=== PATIENT | female | born 1960 | race Caucasian/White ===

== ENCOUNTER 2017-05-12 08:03 | Inpatient (IN) | payer BC ==
--- NOTE | 2017-05-04 14:52 | MH ---
cc: Cristofer Harrington MD DATE OF ADMISSION: 05/12/2017 SCHEDULED ADMISSION: 05/12/2017 ADMITTING DIAGNOSIS: Severe osteoarthritis of the right hip; pain, right hip; gait disturbance. HISTORY OF PRESENT ILLNESS: The patient is a 57-year-old white female who has had a rather longstanding history of bilateral hip pain extending back for approximately 10 years. She had noted the initial onset of her discomfort, especially involving her left knee within the past 10 years and at that time, underwent orthopedic evaluation while she was living in the [place], [place] area. Her evaluation was focused on her left knee and x-ray studies were apparently unremarkable for any significant bony abnormality. The patient was treated with therapy intervention for a period of time and seemed to be doing reasonably well, but thereafter became progressively more symptomatic with pain that began to interfere with all ambulatory activities. During the past couple of years, she relocated to [place] and at that time, underwent further disposition with her primary care physician. She was referred for additional therapy intervention and at the suggestion of her therapist, did undergo orthopedic evaluation, at which time x-ray studies of her hip were completed with significant degenerative changes being noted. The patient was encouraged to conform to a weight reducing program and monitor her diabetes. She had followed through with strict modification of her diet and was able to proceed with significant weight loss and while being maintained on insulin treatment for her diabetes. She presented to the undersigned physician in November of this past year and at that time, described considerable difficulty conforming to all ambulatory activities, for which she was utilizing a walker as a full-time ambulatory aid. She has been alternating between ibuprofen and meloxicam for pain management. Her x-ray studies were reviewed, identifying significant degenerative changes with subtotal obliteration of the joint space and deformation of the femoral head associated with subchondral cyst formation. Findings and treatment options were reviewed with the patient at that time. The pros and cons of continuing with conservative management versus operative intervention that would involve total hip arthroplasty were outlined. Emphasis was made regarding the fact that the decision to proceed with surgery would be left entirely to the patient's discretion. At that time, the patient was undergoing dental treatment and thus postponed any further disposition. 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 She had also undergone a thorough vascular evaluation and was diagnosed as having chronic venostasis about her left lower extremity, for which she was prescribed nonoperative intervention. She continued to have pain involving both hips, but definitely being more pronounced on the right side and given the degree of incapacitation, had expressed her desire to proceed with a more definitive course of treatment. The more current x-ray studies revealed complete obliteration of her joint space with collapse of the femoral head and associated subchondral cyst formation. The involvement of total hip replacement was outlined, for which the patient indicated her full understanding and expressed her desire to proceed accordingly. In compliance with her wishes, she was scheduled for admission at this time in order that the above be accomplished. PAST MEDICAL HISTORY, HOSPITALIZATIONS AND SURGERIES: Have included tonsillectomy and dental extraction. The patient has also been hospitalized in the past for diabetes. Her current medical illnesses include diabetes, hypertension and elevated cholesterol. MEDICATIONS: She takes Lantus 35 units daily and Humulin N 10-20 units twice daily as indicated by glucose monitoring. She also conforms to a metabolic diet and has lost over 40 pounds within the past year. Additional medications include Accupril 5 mg daily, simvastatin 10 mg daily, and meloxicam 10 mg daily. She also takes a multivitamin tablet daily. ALLERGIES: THERE ARE NO INDICATED DRUG ALLERGIES. REVIEW OF SYSTEMS: She wears both glasses and contact lenses. Denies headache, seizure, or syncope. No sinus congestion or epistaxis. Auditory acuity intact. No tinnitus. No bleeding gums or dysphagia. Denies cough, shortness of breath, upper respiratory infection, pneumonia, or tuberculosis. No angina or heart disease. She is medically managed for hypertension. Her appetite is good. Bowel movements are regular. No hepatitis, gallbladder disease, ulcers or hemorrhoids. No urinary tract infection, no kidney stones. No history of fractures. No psychiatric illness. Her remaining review of systems is unremarkable and noncontributory. FAMILY HISTORY: The patient has been for more than 20 years. Her is 57 years of age. He has a history of heart disease. No children. FAMILY HISTORY: Positive for diabetes and heart disease. SOCIAL HISTORY: The patient completed be a BA college degree. 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 She does express an interest in returning to work once her hip symptoms have improved. She admits to a 1/2-1 pack per day use of tobacco for more than 20 years. Denies ethanol consumption. PHYSICAL EXAMINATION: VITAL SIGNS: Height 5 feet 6-1/2 inches, weight 167 pounds. GENERAL: An alert, oriented, and responsive 57-year-old white female who sits quietly upon the examination table with no obvious distress. HEAD, EARS, EYES, NOSE, AND THROAT: Pupils are equally round and reactive to light. Extraocular movements full. Sclerae are clear. External nares clear. External auditory canals clear. Dental intact. Mucous membranes pink and moist. Pharynx is clear. NECK: Supple, active range of motion with no appreciable pain. Carotid pulse palpable bilaterally. Trachea midline. Thyroid without thyroid enlargement. LUNGS: Clear to auscultation and percussion. BACK: No CVA tenderness. No discomfort about the dorsolumbar spine. HEART: Regular rate and rhythm. No murmur or gallop. ABDOMEN: Soft, nontender, bowel sounds present. PELVIC: Per primary care physician. EXTREMITIES: Right hip, there is no localizing tenderness about the hip. There is limited and restricted mobility of the hip joint in all ranges assessed with pain at the extremes of motion. Straight leg raising is limited to 60 degrees. Umang sign is markedly positive. Distal sensory grossly intact. Pronounced antalgic gait. NEUROLOGIC: Cranial nerves 2 through 12 grossly intact. IMPRESSION: Severe osteoarthritis of the right hip; pain, right hip; gait disturbance. PLAN: Right total hip arthroplasty. The nature of the planned surgical procedure, the potential complications and risks associated, the expectations of surgery and the consent form were thoroughly reviewed with the patient prior to her admission to the hospital. Elvira has indicated her full understanding regarding all of the above and given consent to proceed with treatment as outlined. Medical evaluation and clearance for surgery will be completed by her primary care physician, Dr. Umang Lyon. MD NORA Davila/SB , 04:52 PM , 05:29 PM
[~2017-05-12] VITALS: Ht 167.6 cm; Wt 75.0 kg
[~2017-05-12 08:03] MED LIST: ACCU5TAB PO; INSU100V3 SQ; LANTUS2P SQ; SIMV10TA PO
[2017-05-12] MEDS ORDERED: METOPROLOL TARTRATE 25 MG TAB PO PRN (08:30)
[2017-05-12] MEDS ORDERED: SODIUM CHLORID 0.9% 500 ML IV PRN (08:30)
[2017-05-12] MEDS ORDERED: CHLORHEXIDINE GLUCONATE 2 % 1 PACK (2 CLOTHS) TOPICAL PRN (08:30)
[2017-05-12] MEDS ORDERED: POVIDONE IODINE 5% (ANTISEPSIS KIT) 4 APPLICATIONS EACH NARE PRN (08:30)
[2017-05-12] MEDS ORDERED: POVIDONE IODINE 7.5% SCRUB 118 ML BOTTLE TOPICAL SCH (08:30)
[2017-05-12] MEDS ORDERED: INSULIN HUMAN REGULAR 1,000 UNITS/10 ML VIAL SQ PRN (08:30)
[2017-05-12] MEDS ORDERED: LACTATED RINGER'S 1000 ML IV PRN (08:30)
[2017-05-12] MEDS ORDERED: CEFAZOLIN INJ 2,000 MG in SODIUM CHLORIDE 0.9% INJ 100 ML IV SCH (09:00)
[2017-05-12] MEDS ORDERED: TRANEXAMIC ACID 1 GM PRIOR TO PROCEDURE IV SCH ×2 (09:00)
[2017-05-12] MEDS ORDERED: ceFAZolin INJ 1,000 MG VIAL ONE (09:31)
[2017-05-12] MEDS ORDERED: PROPOFOL 500 MG/50 ML INJ 50 ML ONE (09:47)
[2017-05-12] MEDS ORDERED: BUPIVACAINE PF 0.75% DEX-WATER INJ 2 ML AMP ONE (09:48)
[2017-05-12] MEDS ORDERED: ACETAMINOPHEN 1000 MG/100 ML 100 ML IV ONE (10:13)
[2017-05-12] MEDS ORDERED: FAMOTIDINE 20 MG/2 ML VIAL ONE (10:15)
[2017-05-12] MEDS ORDERED: PHENYLEPH/NS 1000 MCG/10 ML SYR IV ONE (12:00)
[2017-05-12] MEDS ORDERED: TRANEXAMIC ACID 1 GM POST-OP IV SCH ×2 (12:00)
[2017-05-12] MEDS ORDERED: LACTATED RINGER'S 1000 ML INJ 1,000 ML IV ONE (12:00)
[2017-05-12] MEDS ORDERED: PROPOFOL 200 MG/20 ML AMP IV ONE (12:00)
[2017-05-12] MEDS ORDERED: PHENYLEPHRINE HCL 10 MG/ML VIAL IV ONE (12:00)
[2017-05-12] MEDS ORDERED: ONDANSETRON HCL 4 MG/2 ML VIAL IV ONE (12:00)
[2017-05-12] MEDS ORDERED: DO NOT ADM ANY ANTICOAGULANT DRUGS PRN (12:35)
[2017-05-12] MEDS ORDERED: *morphine SULFATE 8 MG/ML PERIprocedure ONLY ONE ×2 (12:41→12:46)
[2017-05-12] MEDS ORDERED: MIDAZOLAM HCL 2 MG/2 ML VIAL ONE (12:41)
[2017-05-12] MEDS ORDERED: DEXT 5%-NACL 0.45% 1000 ML INJ 1,000 ML IV SCH (12:51)
--- NOTE | 2017-05-12 12:57 | HHI.FF ---
Face to Face Verification Diagnosis: (1) Degenerative joint disease of right hip Physical Therapy Hip: Total hip, Protocol: Right, Abduction pillow while in bed Right LE Weight Bearing: WB as tolerated Right LE Range of Motion: Active ROM Nursing Dressing Changes: Daily dressing change I have seen patient Elvira Machuca on 05/12/17. My clinical findings support the need for the requested home health care services because: Limited ability to care for self High risk of falls I certify that my clinical findings support that this patient is homebound because: Post-op weakness Unsteady gait/balance Unsafe to leave home unassisted Cristofer Harrington MD May 12, 2017 12:57
[2017-05-12] MEDS ORDERED: MEPERIDINE HCL 25 MG/ML VIAL ONE (12:59)
[2017-05-12] MEDS ORDERED: DOCUSATE SODIUM 100 MG CAP PO PRN (13:00)
[2017-05-12] MEDS ORDERED: ACETAMINOPHEN 325 MG TAB PO PRN (13:00)
[2017-05-12] MEDS ORDERED: Post-op Orders (for Pharmacy) XX ONE (13:00)
[2017-05-12] MEDS ORDERED: NALOXONE HCL 0.4 MG/ML AMP IV PUSH PRN (13:00)
[2017-05-12] MEDS ORDERED: ZOLPIDEM TARTRATE 5 MG TAB PO PRN (13:00)
[2017-05-12] MEDS ORDERED: MISCELLANEOUS PHARMACY INFORMATION XX ONE (13:00)
[2017-05-12] MEDS ORDERED: ONDANSETRON HCL 4 MG/2 ML VIAL IVP PRN (13:00)
[2017-05-12] MEDS ORDERED: TRANEXAMIC ACID INJ 1,000 MG in SODIUM CHLORIDE 0.9% INJ 100 ML IV SCH (13:00)
[2017-05-12] MEDS ORDERED: ACETAMINOPHEN/HYDROcodone 325 MG/5 MG TAB PO PRN (13:00)
--- NOTE | 2017-05-12 13:23 | MP ---
cc: Cristofer Harrington MD DATE OF OPERATION: 05/12/2017 PREOPERATIVE DIAGNOSIS: Severe osteoarthritis of the right hip, pain right hip and gait disturbance. POSTOPERATIVE DIAGNOSIS: Severe osteoarthritis of the right hip, pain right hip and gait disturbance. PROCEDURE PERFORMED: Right total hip arthroplasty. SURGEON: MD Juany ANESTHESIA: Spinal. INDICATIONS: A 57-year-old white female with a lengthy history of bilateral hip pain extending back for at least 10 years. She had noted the initial onset of her discomfort initially involving the left knee and at that time underwent orthopedic evaluation while living in the [facility]. Her initial evaluation was focused on the knee and x-ray studies were apparently unremarkable for any significant bony abnormality. The patient was treated with therapy intervention, seemed to be doing reasonably well, but becoming progressively more symptomatic with pain that began to interfere with all ambulatory activities. During the past couple of years, she relocated to [place] and at that time underwent further disposition with her primary care physician. She was referred for additional therapy/treatment and at the suggestion of her therapist did undergo orthopedic evaluation at which time x-ray studies of her hips were completed with significant degenerative changes being noted. The patient was encouraged to conform to a weight reducing program and monitor her diabetes. She followed through with strict modification of diet and was to proceed with a significant weight loss while being maintained on insulin treatment for her diabetes. She presented to the undersigned physician in November of this past year and at that time described considerable difficulty, conforming to all ambulatory activities for which she was utilizing a walker as a full-time ambulatory aid. She had been alternating between ibuprofen and meloxicam for pain management. Her x-ray studies demonstrated significant degenerative changes with subtotal obliteration of the joint space and deformation of the femoral head associated with subchondral cyst formation. Findings and treatment options were reviewed. The pros and cons of continuing with conservative management versus operative intervention that would involve total hip arthroplasty were outlined. Emphasis was made regarding the fact that the decision to proceed with surgery would be left entirely to the patient's discretion. At that time, the patient was undergoing dental treatment and postponed any further orthopedic disposition. She returned to the office more recently indicating that she was having ongoing difficulties as related to all weightbearing activities and continuing to require use of a walker as an ambulatory aid. She has also undergone a thorough vascular evaluation and was diagnosed as having chronic venous stasis about her left lower extremity for which she was prescribed nonoperative intervention. She continued with pain of both hips, but definitely more pronounced on the right side, her more. Her more current x-ray studies revealed complete obliteration of her joint space with collapse of the femoral head and associated subchondral cyst formation. The involvement of total hip replacement was again outlined at which time the patient indicated her full understanding and expressed her desire to proceed accordingly. In compliance with her request, she was scheduled for admission at this time in order that the above be accomplished. FORMAT: Following the induction of satisfactory spinal anesthesia as completed per the Department of Anesthesia, the patient was positioned upon the operating table in a left lateral decubitus fashion. The right hip and lower extremity proper were isolated with a U-drape, thereafter being prepped with Betadine solution and draped into a sterile field in the routine manner. Prior to initiation of the actual procedure, the standard timeout protocol was completed. All parameters were appropriately addressed and confirmed by operating room personnel. A standard posterolateral approach to the hip was initiated through a sharp skin incision and developed through underlying subcutaneous tissue with hemostasis maintained by electrocautery. By deepening dissection, the fascia overlying the gluteus musculature was exposed and thereafter sharply incised to the limits of the incision. The underlying gluteus fibers were then bluntly divided and by progressive dissection the short external rotator structures were identified. The piriformis tendon was utilized as an anatomical landmark and division of these structures was completed in a superior to inferior orientation and reflected medially, exposing the posterior capsule. The sciatic nerve was protected. An L-shaped capsulotomy was accomplished through which a posterior dislocation of the femoral head was completed. Examination revealed severe degenerative changes with complete erosion of articular cartilage and an obvious osteochondral defect about the femoral head region. The femoral template was positioned for alignment orientation. The neck was scored and thereafter divided with power saw, the amputated segment being passed to the back table as surgical specimen. Attention was initially directed to the proximal femur. Cancellous bone was harvested. The tapered reamer was inserted for alignment orientation. Sequential rasping and broaching was accomplished from 7 through 8 mm, the calcar bijan being utilized at the 8 mm stage. The 8 mm stem was determined to be a favorable fit. The trial component being removed, attention was redirected to the acetabulum. The labrum and reactive soft tissue were sharply excised. Progressive reaming was accomplished from 46-54 mm. The 54 trial shell was positioned and determined to be satisfactory. All trial components being removed, the wound was copiously irrigated with pulsating antibiotic solution, hemostasis maintained by electrocautery. Thereafter a 54 mm RingLoc acetabular shell was firmly seated in approximately 45 degrees inclination to the horizontal and slight anteversion. Two 6.5 mm screws of 25 and 20 mm length respectively were inserted superiorly to augment fixation. The permanent high wall acetabular liner was affixed to the acetabular shell. Attention was redirected to the proximal femur. The 8 mm trial femoral broach was repositioned and a trial reduction followed utilizing a 36 mm modular head with -6 mm neck length adaptor. The hip readily reduced and was carried through a passive range of motion, stability demonstrated at 90 degrees flexion and 45 degrees internal rotation. An open dislocation was completed, trial femoral components being removed, the canal was thoroughly irrigated and dried and thereafter, the permanent 8 mm Echo Bi-Metric standard femoral stem was firmly seated to which, a 36 mm ceramic head with -6 mm neck length adapter attached. Open reduction completed and repeat range of motion again noted stability as previously described. Final irrigation was accomplished, hemostasis maintained by electrocautery. The posterior capsule was repaired with 0 Vicryl suture. Piriformis tendon and short external rotator structures were reapproximated in a similar manner. Hemovac drain tubes were inserted through superior stab wounds. The fascia of the gluteus musculature was reapproximated with a running 0 Vicryl suture. The remaining portion of the wound was closed in layers in the routine manner, skin margins being reapproximated with a running subcuticular 3-0 Vicryl suture over which Steri-Strips were applied. Xeroform gauze and a bulky dry sterile dressing were placed. The patient was repositioned into a supine orientation where an abduction splint was attached. Anesthesia was discontinued and she was thereafter transferred to a hospital bed and returned to the recovery room in satisfactory condition, having tolerated her operative procedure well Estimated blood loss was approximately 300 mL as determined per Anesthesia. All implants were of the Biomet nut culler. MD NORA Davila/SB , 12:48 PM , 01:22 PM
[2017-05-12] MEDS: MORPHINE SULFATE 30 MG/30 ML PCA IV SCH (13:30)
--- NOTE | 2017-05-12 14:15 | RADRPT ---
EXAM DATE/TIME: 05/12/2017 13:29 [facility] COMPARISON: No previous studies available for comparison. INDICATIONS : Post-op right hip. MEDICAL HISTORY : None. SURGICAL HISTORY : None. ENCOUNTER: Initial ACUITY: 1 day PAIN SCORE: 0/10 LOCATION: Right Hip. FINDINGS: Single frontal view of the right hip status post total hip arthroplasty demonstrates a noncemented pr osthesis and 2 superior screws in the acetabular component. [address] place. Some sc attered soft tissue gas. No radiopaque foreign bodies. CONCLUSION: Expected postoperative changes status post total hip arthroplasty. Hong Delgado MD on May 12, 2017 at 14:12 Board Certified Radiologist. This report was verified electronically.
[2017-05-12 15:20] VITALS: BP_SYST 136; BP_SYST 86; BP_DIAS 43; BP_DIAS 44; BP_DIAS 63; PULSE 78; RESP 18; TEMP 97.8; O2SAT 100
[2017-05-12] MEDS ORDERED: GLUCAGON 1 MG/ML VIAL OTHER PRN ×3 (16:00→16:30)
[2017-05-12] MEDS ORDERED: DEXTROSE 50% IN WATER 50 ML VIAL(D50) IV PUSH PRN ×2 (16:00→16:30)
--- NOTE | 2017-05-12 16:10 | PD.CONS ---
HPI Service [facility] Requested By Primary Care Physician Umang Lyon III Diagnoses: (1) right hip severe osteoarthritis (2) on PENELOPE inhibitor for renal protection (3) Diabetes mellitus type II, controlled History of Present Illness Patient is a very pleasant 57-year-old female with known history of diabetes type 2 insulin-requiring last hemoglobin A1c was 5.2 per patient well controlled , with good hypoglycemic awareness on oral hypoglycemic, takes quinapril 5 mg by mouth daily for renal protection,. Patient was admitted here under orthopedic services and underwent right total hip arthroplasty. Patient has been having right hip pain actually bilateral but right worse than the left states history of a vascular necrosis of both hips. Increasing difficulty walking for the past 4 years now worsening over the last year and had to use a cane and walker for ambulation. Admitted today and [facility] patient states she is on Lantus 35 units subcutaneous in the morning on a sliding scale Humulin and a averages around 10-20 units twice a day. Before breakfast and before dinner. Patient states that her blood sugars started around 120s to 160s with good hypoglycemic awareness. Patient smokes half pack per day still. Denies any history of COPD, shortness of breath. Review of Systems Constitutional: DENIES: Diaphoretic episodes, Fatigue, Fever, Weight gain, Weight loss, Chills, Dizziness, Change in appetite, Night Sweats Endocrine: DENIES: Abnorml menstrual pattern, Heat/cold intolerance, Polydipsia , Polyuria, Polyphagia Eyes: DENIES: Blurred vision, Diplopia, Eye inflammation, Eye pain, Vision loss , Photosensitivity, Double Vision Ears, nose, mouth, throat: DENIES: Tinnitus, Hearing loss, Vertigo, Nasal discharge, Oral lesions, Throat pain, Hoarseness, Ear Pain, Running Nose, Epistaxis, Sinus Pain, Toothache, Odynophagia Respiratory: DENIES: Apneas, Cough, Snoring, Wheezing, Hemoptysis, Sputum production, Shortness of breath Cardiovascular: DENIES: Chest pain, Palpitations, Syncope, Dyspnea on Exertion , PND, Lower Extremity Edema, Orthopnea, Claudication Gastrointestinal: DENIES: Abdominal pain, Black stools, Bloody stools, Constipation, Diarrhea, Nausea, Vomiting, Difficulty Swallowing, Anorexia Genitourinary: DENIES: Abnormal vaginal bleeding, Dysmenorrhea, Dyspareunia, Sexual dysfunction, Urinary frequency, Urinary incontinence, Urgency, Hematuria , Dysuria, Nocturia, Vaginal discharge Musculoskeletal: COMPLAINS OF: Joint pain (bilateral hip pain) Integumentary: DENIES: Abnormal pigmentation, Pruritus, Rash, Nail changes, Breast masses, Breast skin changes, Nipple discharge Hematologic/lymphatic: DENIES: Bruising, Lymphadenopathy Immunologic/allergic: DENIES: Eczema, Urticaria Neurologic: COMPLAINS OF: Abnormal gait Psychiatric: DENIES: Anxiety, Confusion, Mood changes, Depression, Hallucinations, Agitation, Suicidal Ideation, Homicidal Ideation, Delusions Past Family Social History Allergies: Coded Allergies: No Known Allergies (Unverified , 05/12/17) Past Medical History Diabetes type 2 insulin-requiring On PENELOPE inhibitor for renal protection Hyperlipidemia on simvastatin Past Surgical History No major surgery Reported Medications As outpatient quinapril 5 mg by mouth daily for renal protection Lantus 35 units subcutaneous every morning Humulin and 10-20 units twice a day Simvastatin Active Ordered Medications See EMR Family History Noncontributory Social History Smokes half pack per day Very rarely drinks alcohol Denies any history of substance abuse Physical Exam Vital Signs Vital Signs Date Time Temp Pulse Resp B/P (MAP) Pulse Ox O2 Delivery O2 Flow Rate FiO2 05/12/17 14:12 73 16 121/58 (79) 100 Nasal Cannula 2 05/12/17 13:30 16 05/12/17 13:15 71 16 140/66 (90) 100 Nasal Cannula 2 05/12/17 13:00 73 16 136/62 (86) 99 Nasal Cannula 2 05/12/17 12:45 77 16 128/54 (78) 99 Nasal Cannula 2 05/12/17 12:37 97.8 75 16 113/57 (75) 100 Nasal Cannula 2 05/12/17 09:17 98.6 75 20 149/67 (94) 100 Physical Exam GENERAL: This is a well-nourished, well-developed patient, in no apparent distress. SKIN: No rashes, ecchymoses or lesions. Cool and dry. HEAD: Atraumatic. Normocephalic. EYES: Pupils equal round and reactive. Extraocular motions intact. No scleral icterus. ENT: Nose without bleeding, Throat without erythema, tonsillar hypertrophy or exudate. . Airway patent. NECK: Trachea midline. No JVD or lymphadenopathy. Supple, nontender, no meningeal signs. CARDIOVASCULAR: Regular rate and rhythm without murmurs, gallops, or rubs. RESPIRATORY: Clear to auscultation. Breath sounds equal bilaterally. No wheezes , rales, or rhonchi. GASTROINTESTINAL: Abdomen soft, non-tender, nondistended. No hepato-splenomegaly , or palpable masses. No guarding. MUSCULOSKELETAL: Extremities without clubbing, cyanosis, or edema. No joint tenderness, effusion, or edema noted. No calf tenderness. Negative Homans sign bilaterally. Right hip postop LINDA drain in place NEUROLOGICAL: Awake and alert. Cranial nerves II through XII intact. Motor lower extremity limited by pain is all extremities spontaneously Five out of 5 muscle strength in all muscle groups. Normal speech. Imaging Last Impressions Hip X-Ray 05/12/17 1251 Signed Impressions: Service Date/Time: Friday, May 12, 2017 13:29 - CONCLUSION: Expected postoperative changes status post total hip arthroplasty. Hong Delgado MD Assessment and Plan Assessment and Plan 57-year-old female Status post right total hip arthroplasty for severe osteoarthritis of the right hip05/12 PT following, orthopedic service is following When necessary pain meds per primary service. History of diabetes type 2 insulin-requiring discussed with patient we'll start her Lantus at half home dose while here and monitor - 15 units Lantus q am- d/w pharmacy- medically necessary- patient refused levemer equivalent We'll check fingersticks with sliding scale coverage low dose patient states good hypoglycemic awareness- agrees with Novolin r low dose sliding scale Quinapril 5 mg po daily for renal protection- hold for now- BP now 97/60 - consider restarting in am. History of hyperlipidemia continue on simvastatin Smoker. Patient counseled extensively. Agrees with nicotinic patch Incentive spirometry hourly Xarelto for DVT prophylaxis CM consulted for DC planning Thank you for this consult we'll follow patient in-house with you discharge planning case management following home with home PT versus intermediate facility Discussed Condition With Patient Ariane Dickens MD May 12, 2017 16:10
[2017-05-12 16:30] VITALS: BP 136/63
[2017-05-12] MEDS ORDERED: INSULIN NovoLIN REGULAR SUPPLEMENTAL SCALE SQ SCH (17:00)
[2017-05-12] MEDS: INSULIN ASPART SUPPLEMENTAL SCALE SQ SCH ×2 (18:52→21:00)
[2017-05-12 19:53] VITALS: O2SAT 99
[2017-05-12 20:00] VITALS: BP 158/72; PULSE 94; RESP 16; TEMP 99.8; O2SAT 97
[2017-05-12] MEDS: ACETAMINOPHEN/HYDROcodone 325 MG/5 MG TAB PO PRN (21:52)
[2017-05-12] MEDS: PCA - TOTAL MG MORPHINE DELIVERED PER SHIFT SCH (21:55)
[2017-05-12 23:06] VITALS: BP 123/58; PULSE 92; RESP 18; TEMP 99.5; O2SAT 97
[2017-05-13 04:00] VITALS: BP 126/78; PULSE 93; RESP 18; TEMP 99.4; O2SAT 95
[2017-05-13] MEDS: PCA - TOTAL MG MORPHINE DELIVERED PER SHIFT SCH ×3 (06:00→22:00)
[2017-05-13] MEDS ORDERED: HYDR-3516 PO (06:04)
[2017-05-13] MEDS ORDERED: ASPI-183 PO (06:04)
[2017-05-13] MEDS ORDERED: WALKER WHEELS/F1 MIS (06:08)
[2017-05-13] MEDS ORDERED: COMMODE 3-IN-11 MIS (06:08)
[2017-05-13 06:20] LABS: HEMATOCRIT 30.5 % (35.0-46.0); HEMOGLOBIN 10.2 GM/DL (11.6-15.3)
[2017-05-13 08:00] VITALS: BP 150/68; PULSE 97; RESP 20; TEMP 99.4; O2SAT 98
[2017-05-13] MEDS: PRAVASTATIN SOD 20 MG TAB PO SCH (08:47)
[2017-05-13] MEDS: INSULIN ASPART SUPPLEMENTAL SCALE SQ SCH ×4 (08:47→21:41)
[2017-05-13] MEDS ORDERED: LISINOPRIL 5 MG TAB PO SCH (09:00)
[2017-05-13] MEDS ORDERED: NON-FORMULARY DRUG (Simvastatin 10 MG) PO SCH (09:00)
[2017-05-13] MEDS ORDERED: INSULIN GLARGINE 1,000 UNITS/10 ML VIAL SQ SCH (09:00)
[2017-05-13] MEDS: RIVAROXABAN 10 MG TAB PO SCH (11:55)
[2017-05-13 12:00] VITALS: BP 161/64; PULSE 107; RESP 20; TEMP 98.8; O2SAT 97
[2017-05-13] MEDS: MORPHINE SULFATE 30 MG/30 ML PCA IV SCH (12:24)
[2017-05-13 16:00] VITALS: BP 146/64; PULSE 93; RESP 18; TEMP 99.5; O2SAT 97
[2017-05-13 17:55] VITALS: O2SAT 97
[2017-05-13] MEDS ORDERED: GLUCAGON 1 MG/ML VIAL OTHER PRN (19:15)
[2017-05-13] MEDS ORDERED: DEXTROSE 50% IN WATER 50 ML VIAL(D50) IV PUSH PRN (19:15)
--- NOTE | 2017-05-13 19:16 | HHI.PR ---
Subjective Remarks The patient states that her blood sugars are very elevated. The patient feels very thirsty The patient is also complaining of severe pain located in her right hip when she moves. Patient states she was able to walk with PT today. Patient also states she was sitting in the chair for 3 hours. The patient denies chest pain or shortness of breath, denies fevers or chills. Denies nausea, vomiting or abdominal pain. Objective Vitals Vital Signs Date Time Temp Pulse Resp B/P (MAP) Pulse Ox O2 Delivery O2 Flow Rate FiO2 05/13/17 17:55 97 21 05/13/17 16:00 99.5 93 18 146/64 (91) 97 05/13/17 12:29 16 05/13/17 12:26 16 05/13/17 12:24 18 05/13/17 12:00 98.8 107 20 161/64 (96) 97 05/13/17 08:45 98 Nasal Cannula 2.00 05/13/17 08:00 99.4 97 20 150/68 (95) 98 05/13/17 06:00 18 05/13/17 04:00 99.4 93 18 126/78 (94) 95 05/12/17 23:23 Nasal Cannula 2.00 05/12/17 23:06 99.5 92 18 123/58 (79) 97 05/12/17 22:56 18 05/12/17 21:55 18 05/12/17 20:00 99.8 94 16 158/72 (100) 97 05/12/17 19:53 99 21 I/O 05/12/17 05/12/17 05/12/17 05/13/17 05/13/17 05/13/17 07:00 15:00 23:00 07:00 15:00 23:00 Intake Total 140 ml 100 ml 340 ml 480 ml 850 ml Output Total 300 ml 100 ml 675 ml 50 ml Balance -160 ml 0 ml -335 ml 480 ml 800 ml Intake Oral 240 ml 480 ml IV Total 100 ml 100 ml 850 ml Other 140 ml Output Urine Total 650 ml Drainage Total 100 ml 25 ml 50 ml Estimated Blood Loss 300 ml # Voids 2 # Bowel Movements 0 Result Diagram: 05/13/17 0558 Imaging Last Impressions Hip X-Ray 05/12/17 1251 Signed Impressions: Service Date/Time: Friday, May 12, 2017 13:29 - CONCLUSION: Expected postoperative changes status post total hip arthroplasty. Hong Delgado MD Objective Remarks GENERAL: This is a well-nourished, well-developed patient, in no apparent distress. SKIN: No rashes, ecchymoses or lesions. Cool and dry. HEAD: Atraumatic. Normocephalic. EYES: Pupils equal round and reactive. Extraocular motions intact. No scleral icterus. ENT: Nose without bleeding, Throat without erythema, tonsillar hypertrophy or exudate. . Airway patent. NECK: Trachea midline. No JVD or lymphadenopathy. Supple, nontender, no meningeal signs. CARDIOVASCULAR: Regular rate and rhythm without murmurs, gallops, or rubs. RESPIRATORY: Clear to auscultation. Breath sounds equal bilaterally. No wheezes , rales, or rhonchi. GASTROINTESTINAL: Abdomen soft, non-tender, nondistended. No hepato-splenomegaly , or palpable masses. No guarding. MUSCULOSKELETAL: Extremities without clubbing, cyanosis, or edema. No joint tenderness, effusion, or edema noted. No calf tenderness. Negative Homans sign bilaterally. Right hip postop LINDA drain in place NEUROLOGICAL: Awake and alert. Cranial nerves II through XII intact. Motor lower extremity limited by pain is all extremities spontaneously Five out of 5 muscle strength in all muscle groups. Normal speech. Medications and IVs Current Medications Medications (Trade) Dose Ordered Sig/Dax Route Start Time Stop Time Status Last Admin Lactated Ringer's 1,000 ml @ 30 mls/hr Q24H PRN IV 05/12/17 08:30 05/15/17 08:29 05/12/17 08:45 Sodium Chloride 500 ml @ 30 mls/hr [id number] PRN IV 05/12/17 08:30 05/15/17 08:29 (Lopressor) 25 mg NEWSPAPER COLUMNIST PRN PO 05/12/17 08:30 05/15/17 08:29 (Betadine 5% Antisepsis Kit) 1 applic NEWSPAPER COLUMNIST PRN EACH NARE 05/12/17 08:30 05/15/17 08:29 05/12/17 09:00 (Chlorhexidine 2% Cloth) 3 pack NEWSPAPER COLUMNIST PRN TOPICAL 05/12/17 08:30 05/15/17 08:29 05/12/17 08:00 (NovoLIN R INJ) See Protocol Table ... NEWSPAPER COLUMNIST PRN SQ 05/12/17 08:30 05/15/17 08:29 (Betadine 7.5% Scrub) 1 applic ONCE TOPICAL 05/12/17 08:30 05/15/17 08:29 05/12/17 08:30 Cefazolin Sodium 2000 mg/Sodium Chloride 120 ml @ 240 mls/hr NEWSPAPER COLUMNIST IV 05/12/17 09:00 05/15/17 08:59 05/12/17 10:11 (Xarelto) 10 mg Q24H PO 05/13/17 12:00 05/13/17 11:55 ([place] 5-325 Mg) 1 tab Q4H PRN PO 05/12/17 13:00 ([place] 5-325 Mg) 2 tab Q4H PRN PO 05/12/17 13:00 05/12/17 21:52 (Tylenol) 650 mg Q6H PRN PO 05/12/17 13:00 (Zofran Inj) 4 mg Q6H PRN IVP 05/12/17 13:00 (Colace) 100 mg BID PRN PO 05/12/17 13:00 (Ambien) 5 mg HS PRN PO 05/12/17 13:00 (Narcan Inj) 0.4 mg UNSCH PRN IV PUSH 05/12/17 13:00 05/14/17 12:59 (Morphine 1 Mg/ ml CONSIGNEE) 30 mg UNSCH IV 05/12/17 13:00 05/14/17 12:59 05/13/17 12:24 CONSIGNEE Dosage Infused (Pha) 1 Q8HR .XX 05/12/17 14:00 05/14/17 13:59 05/13/17 12:26 (Pravachol) 20 mg DAILY PO 05/13/17 09:00 05/13/17 08:47 (Lantus Inj) 35 units DAILY SQ 05/14/17 09:00 UNV (D50w (Vial) Inj) 50 ml UNSCH PRN IV PUSH 05/13/17 19:15 UNV (Glucagon Inj) 1 mg UNSCH PRN OTHER 05/13/17 19:15 UNV (NovoLOG SUPPLEMENTAL SCALE) 1 ACHS SLIDING SCALE SQ 05/13/17 21:00 UNV (Levemir Inj) 15 units ONCE SQ 05/13/17 19:15 UNV A/P Problem List: (1) right hip severe osteoarthritis (2) on PENELOPE inhibitor for renal protection (3) Diabetes mellitus type II, controlled ICD Code: E11.9 - Type 2 diabetes mellitus without complications Assessment and Plan 1. Status post right hip total hip arthroplasty for severe S arthritis of the right hip Continue PT Management as per orthopedic surgery Patient on morphine CONSIGNEE pump. We will order dose of IV Dilaudid prior to physical therapy. 2. Diabetes mellitus with hyperglycemia Patient's blood sugars have been severely elevated in the 300s. I will resume the patient's home Lantus at her home dose of 35 units subcu daily. In the meantime we will give a dose of insulin Levemir 50 units subcutaneously and increase the sliding scale with insulin NovoLog to medium dose. 3. Hyperlipidemia. Continue statin. 4. Smoking addiction. Advised cessation. DVT prophylaxis: Xarelto. Discharge Planning DC as per primary. The patient is not medically clear we discharge it. Nba Bailey MD May 13, 2017 19:16
[2017-05-13 20:06] VITALS: BP 149/65; PULSE 95; RESP 16; TEMP 98.9; O2SAT 97
[2017-05-13] MEDS ORDERED: INSULIN DETEMIR 100 UNITS/ML VIAL SQ ONE (21:00)
[2017-05-13 21:04] LABS: HEMATOCRIT 27.5 % (35.0-46.0); HEMOGLOBIN 9.5 GM/DL (11.6-15.3); MEAN CELL VOLUME 95.3 FL (80.0-100.0); MEAN CORPUSCULAR HEMOGLOBIN 32.9 PG (27.0-34.0); MEAN CORPUSCULAR HGB CONC 34.5 % (32.0-36.0); MEAN PLATELET VOLUME 8.9 FL (7.0-11.0); PLATELET COUNT 229 TH/MM3 (150-450); RED BLOOD COUNT 2.89 MIL/MM3 (4.00-5.30); RED CELL DISTRIBUTION WIDTH 13.6 % (11.6-17.2); WHITE BLOOD COUNT 9.3 TH/MM3 (4.0-11.0)
[2017-05-13 21:27] LABS: BICARBONATE 24.6 MEQ/L (21.0-32.0); CALCIUM 8.5 MG/DL (8.5-10.1); CREATININE 0.75 MG/DL (0.50-1.00); PHOSPHORUS 2.2 MG/DL (2.5-4.9)
[2017-05-13] MEDS: ACETAMINOPHEN/HYDROcodone 325 MG/5 MG TAB PO PRN (21:56)
[2017-05-14] VITALS (8 sets, daily range): BP systolic 124–162; BP diastolic 56–77; PULSE 83–95; RESP 16–18; TEMP 98.2–99.8; O2SAT 94–98
[2017-05-14] MEDS: PCA - TOTAL MG MORPHINE DELIVERED PER SHIFT SCH (06:00)
--- NOTE | 2017-05-14 06:37 | MD ---
cc: Cristofer Harrington MD, Patrick MD DATE OF DISCHARGE: 05/15/2017 ADMITTING DIAGNOSES: Severe osteoarthritis of the right hip pain, right hip and gait disturbance. DISCHARGE DIAGNOSES: Severe osteoarthritis of the right hip pain, right hip and gait disturbance. HISTORY: A 57-year-old white female with a lengthy history of bilateral hip pain extending back for at least 10 years. The patient had noted the onset of her discomfort initially involving her left knee and at that time underwent orthopedic evaluation while she was living in the [place], [place] area. Her evaluation was focused on her knee and x-ray studies apparently were unremarkable for any significant bony abnormality. She was treated with therapy intervention and seemed to be doing reasonably well, but became progressively more symptomatic with pain that began to interfere with all ambulatory activities. During the past few years, she relocated to [place] and at that time underwent further disposition with her primary care physician. She was referred for additional therapy intervention at the suggestion of her therapist. She underwent orthopedic evaluation with x-ray studies of her hips being completed and significant degenerative changes being identified. The patient was encouraged to conform to a weight reducing program and monitor her diabetes. She followed through with strict modification of her diet and was able to proceed with a significant weight loss while being maintained on insulin treatment for her diabetes. She was later seen by the undersigned physician in November of this past year and at that time to describe considerable difficulty conforming to all ambulatory activities for which she was utilizing a walker as a full-time ambulatory aid. She had been alternating between ibuprofen and meloxicam for pain management. Her x-ray studies identified significant degenerative changes with subtotal obliteration of the joint space and deformation of the femoral head associated with subchondral cyst formation. Findings and treatment options were reviewed with the patient at that time. The pros and cons of continuing with conservative management versus operative intervention that would involve total hip arthroplasty were outlined. Emphasis was made regarding the fact that the decision to proceed with surgery would be left entirely to the patient's discretion. At that time, the patient was undergoing dental treatment and postpone any further orthopedic disposition. She will return to the office in the more recent past indicating ongoing difficulties as related with all weightbearing activities and continuing to require use of a walker as a full-time ambulatory aid. She had also completed a vascular surgery evaluation and was diagnosed as having chronic venous stasis about her left lower extremity for which she was prescribed nonoperative intervention. She described continued pain in both hips, but definitely be more pronounced on the right side expressing her desire to proceed with treatment as had previously been discussed. Her current x-ray studies revealed complete obliteration of her joint space with collapse of the femoral head and associated subchondral cyst formation. Once again, the involvement of total hip arthroplasty was outlined for which the patient indicated full understanding and expressed her desire to proceed accordingly. In compliance with her request, she was scheduled for admission at this time in order that the above be accomplished. Her physical examination at the time of admission revealed no localizing tenderness about the right hip. There was limited and restricted mobility of the hip joint in all ranges assessed with pain at the extreme of motion. Straight leg raising was limited to 60 degrees. Umang sign markedly positive. Distal sensory grossly intact. Pronounced antalgic gait. HOSPITAL COURSE: Prior to admission to the hospital, the patient had undergone medical evaluation and clearance for surgery as completed by her primary care physician, Dr. Umang Lyon. She was taken to the operating room on 05/12/2017 and on that date underwent a right total hip arthroplasty completed in an uncomplicated manner. The patient was noted to have tolerated her operative procedure well. Her postoperative course stable thereafter. Hemoglobin and hematocrit assessment postoperatively was 10.2 and 30.5 respectively. The patient was progressively mobilized under the guidance of physical therapy being permitted weightbearing to tolerance about the right lower extremity. Followup examination of her surgical wound noted to be intact, healing favorably with no evidence of infection. Medical followup per the hospitalist service. DVT prophylaxis initiated. Group Supervisor Yard consulted to assist with discharge planning. The patient had indicated her intent for temporary rehab placement following discharge from the hospital. Plans were finalized in this regard and pending medical clearance, she was scheduled for transfer on the third postoperative day at which time she was noted making favorable progress with regard to her initial rehabilitation program. She was scheduled to be seen in office followup in approximately 4 weeks. CONDITION AT THE TIME OF DISCHARGE: Stable. PROGNOSIS: Favorable. DISCHARGE MEDICATIONS: Include hydrocodone 5/325 #40, aspirin 325 mg 1 tab twice daily for 4 weeks #60. Cristofer Harrington MD NBS/DL , 06:11 AM , 06:36 AM
[2017-05-14 07:18] LABS: HEMATOCRIT 30.2 % (35.0-46.0); HEMOGLOBIN 10.1 GM/DL (11.6-15.3); MEAN CELL VOLUME 95.7 FL (80.0-100.0); MEAN CORPUSCULAR HEMOGLOBIN 32.1 PG (27.0-34.0); MEAN CORPUSCULAR HGB CONC 33.6 % (32.0-36.0); PLATELET COUNT 240 TH/MM3 (150-450); RED BLOOD COUNT 3.16 MIL/MM3 (4.00-5.30); RED CELL DISTRIBUTION WIDTH 13.9 % (11.6-17.2); WHITE BLOOD COUNT 11.2 TH/MM3 (4.0-11.0)
[2017-05-14 07:44] LABS: BICARBONATE 22.8 MEQ/L (21.0-32.0); CALCIUM 8.1 MG/DL (8.5-10.1); CREATININE 0.63 MG/DL (0.50-1.00)
[2017-05-14] MEDS: INSULIN GLARGINE 1,000 UNITS/10 ML VIAL SQ SCH (08:46)
[2017-05-14] MEDS: INSULIN ASPART SUPPLEMENTAL SCALE SQ SCH ×4 (08:46→21:00)
[2017-05-14] MEDS: PRAVASTATIN SOD 20 MG TAB PO SCH (08:48)
[2017-05-14] MEDS: ACETAMINOPHEN/HYDROcodone 325 MG/5 MG TAB PO PRN ×4 (08:55→22:11)
[2017-05-14] MEDS: RIVAROXABAN 10 MG TAB PO SCH (11:40)
--- NOTE | 2017-05-14 12:09 | HHI.PR ---
Subjective Remarks States that hip hurts only when moving. However states pain is better controlled today. Denies chest pain or shortness of breath. Objective Vitals Vital Signs Date Time Temp Pulse Resp B/P (MAP) Pulse Ox O2 Delivery O2 Flow Rate FiO2 05/14/17 11:38 99.3 93 18 124/56 (78) 96 05/14/17 07:34 99.0 95 18 140/77 (98) 95 05/14/17 06:00 16 05/14/17 05:00 99.8 93 17 142/64 (90) 94 05/14/17 00:20 98.5 93 16 162/73 (102) 96 05/13/17 22:00 16 05/13/17 20:06 98.9 95 16 149/65 (93) 97 05/13/17 17:55 97 21 05/13/17 16:00 99.5 93 18 146/64 (91) 97 05/13/17 12:29 16 05/13/17 12:26 16 05/13/17 12:24 18 I/O 05/13/17 05/13/17 05/13/17 05/14/17 05/14/17 05/14/17 07:00 15:00 23:00 07:00 15:00 23:00 Intake Total 340 ml 480 ml 850 ml 720 ml Output Total 675 ml 50 ml Balance -335 ml 480 ml 800 ml 720 ml Intake Oral 240 ml 480 ml 720 ml IV Total 100 ml 850 ml Output Urine Total 650 ml Drainage Total 25 ml 50 ml # Voids 2 4 # Bowel Movements 0 1 Result Diagram: 05/14/17 0624 05/14/17 0624 Imaging Last Impressions Hip X-Ray 05/12/17 1251 Signed Impressions: Service Date/Time: Friday, May 12, 2017 13:29 - CONCLUSION: Expected postoperative changes status post total hip arthroplasty. Hong Delgado MD Objective Remarks GENERAL: This is a well-nourished, well-developed patient, in no apparent distress. SKIN: No rashes, ecchymoses or lesions. Cool and dry. HEAD: Atraumatic. Normocephalic. EYES: Pupils equal round and reactive. Extraocular motions intact. No scleral icterus. ENT: Nose without bleeding, Throat without erythema, tonsillar hypertrophy or exudate. . Airway patent. NECK: Trachea midline. No JVD or lymphadenopathy. Supple, nontender, no meningeal signs. CARDIOVASCULAR: Regular rate and rhythm without murmurs, gallops, or rubs. RESPIRATORY: Clear to auscultation. Breath sounds equal bilaterally. No wheezes , rales, or rhonchi. GASTROINTESTINAL: Abdomen soft, non-tender, nondistended. No hepato-splenomegaly , or palpable masses. No guarding. MUSCULOSKELETAL: Extremities without clubbing, cyanosis, or edema. No joint tenderness, effusion, or edema noted. No calf tenderness. Negative Homans sign bilaterally. Right hip postop LINDA drain in place NEUROLOGICAL: Awake and alert. Cranial nerves II through XII intact. Motor lower extremity limited by pain is all extremities spontaneously Five out of 5 muscle strength in all muscle groups. Normal speech. Medications and IVs Current Medications Medications (Trade) Dose Ordered Sig/Dax Route Start Time Stop Time Status Last Admin Lactated Ringer's 1,000 ml @ 30 mls/hr Q24H PRN IV 05/12/17 08:30 05/15/17 08:29 05/12/17 08:45 Sodium Chloride 500 ml @ 30 mls/hr [id number] PRN IV 05/12/17 08:30 05/15/17 08:29 (Lopressor) 25 mg RAILWAYS ASSISTANT PRN PO 05/12/17 08:30 05/15/17 08:29 (Betadine 5% Antisepsis Kit) 1 applic RAILWAYS ASSISTANT PRN EACH NARE 05/12/17 08:30 05/15/17 08:29 05/12/17 09:00 (Chlorhexidine 2% Cloth) 3 pack RAILWAYS ASSISTANT PRN TOPICAL 05/12/17 08:30 05/15/17 08:29 05/12/17 08:00 (NovoLIN R INJ) See Protocol Table ... RAILWAYS ASSISTANT PRN SQ 05/12/17 08:30 05/15/17 08:29 (Betadine 7.5% Scrub) 1 applic ONCE TOPICAL 05/12/17 08:30 05/15/17 08:29 05/12/17 08:30 Cefazolin Sodium 2000 mg/Sodium Chloride 120 ml @ 240 mls/hr RAILWAYS ASSISTANT IV 05/12/17 09:00 05/15/17 08:59 05/12/17 10:11 (Xarelto) 10 mg Q24H PO 05/13/17 12:00 05/14/17 11:40 ([place] 5-325 Mg) 1 tab Q4H PRN PO 05/12/17 13:00 ([place] 5-325 Mg) 2 tab Q4H PRN PO 05/12/17 13:00 05/14/17 08:55 (Tylenol) 650 mg Q6H PRN PO 05/12/17 13:00 (Zofran Inj) 4 mg Q6H PRN IVP 05/12/17 13:00 (Colace) 100 mg BID PRN PO 05/12/17 13:00 05/14/17 01:18 (Ambien) 5 mg HS PRN PO 05/12/17 13:00 (Narcan Inj) 0.4 mg UNSCH PRN IV PUSH 05/12/17 13:00 05/14/17 12:59 (Morphine 1 Mg/ ml GROUND SUPPORT EQUIPMENT MECHANIC) 30 mg UNSCH IV 05/12/17 13:00 05/14/17 12:59 05/13/17 12:24 GROUND SUPPORT EQUIPMENT MECHANIC Dosage Infused (Pha) 1 Q8HR .XX 05/12/17 14:00 05/14/17 13:59 05/14/17 06:00 (Pravachol) 20 mg DAILY PO 05/13/17 09:00 05/14/17 08:48 (Lantus Inj) 35 units DAILY SQ 05/14/17 09:00 05/14/17 08:46 (D50w (Vial) Inj) 50 ml UNSCH PRN IV PUSH 05/13/17 19:15 (Glucagon Inj) 1 mg UNSCH PRN OTHER 05/13/17 19:15 (NovoLOG SUPPLEMENTAL SCALE) 1 ACHS SLIDING SCALE SQ 05/13/17 21:00 05/14/17 11:41 A/P Problem List: (1) right hip severe osteoarthritis (2) on PENELOPE inhibitor for renal protection (3) Diabetes mellitus type II, controlled ICD Code: E11.9 - Type 2 diabetes mellitus without complications Assessment and Plan 1. Status post right hip total hip arthroplasty for severe arthritis of the right hip Continue PT Management as per orthopedic surgery Patient on morphine GROUND SUPPORT EQUIPMENT MECHANIC pump. We will order dose of IV Dilaudid prior to physical therapy. 2. Diabetes mellitus with hyperglycemia Patient's blood sugars have been severely elevated in the 300s. I will resume the patient's home Lantus at her home dose of 35 units subcu daily. In the meantime we will give a dose of insulin Levemir 50 units subcutaneously and increase the sliding scale with insulin NovoLog to medium dose. 4/5 blood sugar severely elevated in the 300's range 3. Hyperlipidemia. Continue statin. 4. Smoking addiction. Advised cessation. DVT prophylaxis: Xarelto. Discharge Planning Cleared to be discharged on home insulin regimen and insulin sliding scale. Nba Bailey MD May 14, 2017 12:09
[2017-05-15] MEDS: ACETAMINOPHEN/HYDROcodone 325 MG/5 MG TAB PO PRN ×3 (06:18→14:05)
[2017-05-15 08:00] VITALS: BP 111/55; PULSE 84; RESP 17; TEMP 98.3; O2SAT 97
[2017-05-15] MEDS: INSULIN ASPART SUPPLEMENTAL SCALE SQ SCH ×2 (08:47→13:17)
[2017-05-15] MEDS: INSULIN GLARGINE 1,000 UNITS/10 ML VIAL SQ SCH (08:48)
[2017-05-15] MEDS: PRAVASTATIN SOD 20 MG TAB PO SCH (08:48)
[2017-05-15 12:00] VITALS: BP 141/72; PULSE 118; RESP 18; TEMP 98.1; O2SAT 98
[2017-05-15] MEDS: RIVAROXABAN 10 MG TAB PO SCH (13:17)
== END 2017-05-15 16:15 | disposition home health service (06) | DRG 470 ==
LOC: HSDI 08:03 → N06B 14:21
PROVIDERS: ADMIT Orthopaedic Surgery; ATTEND Orthopaedic Surgery
PROC: 0SR903A Replacement of Right Hip Joint with Ceramic Synthetic Substitute, Uncemented, Open Approach (ICD-10-PCS; principal; 2017-05-12 09:49)
DX: M16.11 Unilateral primary osteoarthritis, right hip (principal); E11.65 Type 2 diabetes mellitus with hyperglycemia; I10 Essential (primary) hypertension; E78.00 Pure hypercholesterolemia, unspecified; F17.210 Nicotine dependence, cigarettes, uncomplicated; E78.5 Hyperlipidemia, unspecified; I87.8 Other specified disorders of veins; M25.552 Pain in left hip; Z79.899 Other long term (current) drug therapy; Z79.4 Long term (current) use of insulin; Z83.3 Family history of diabetes mellitus
CPT/HCPCS: 73501; 80048; 82948; 83735; 84100; 85014; 85018; 85027; 86850; 86900; 86901; 88304; 88305; 88311; 94150; C1776; J0131; J0690; J1815; J2175; J2250; J2270; J2370; J2405; J7120

== ENCOUNTER 2017-10-26 05:40 | Inpatient (IN) ==
[2017-10-26] MEDS ORDERED: Chlorhexidine Gluconate 2% 1 Pack (2 Cloths) TOPICAL ONE (06:12)
[2017-10-26] MEDS ORDERED: Metoprolol Tartrate 25 MG Tablet PO ONE (06:12)
[2017-10-26] MEDS ORDERED: Chlorhexidine 4% Topical 120 APPLIC/120 ML Bottle TOPICAL SCH (06:15)
--- NOTE | 2017-10-26 06:47 | MH ---
cc: Cristofer Harrington MD DATE OF ADMISSION: 10/26/2017 ADMITTING DIAGNOSIS: Severe osteoarthritis of the left hip. HISTORY OF PRESENT ILLNESS: The patient is a 57-year-old white female who has had a longstanding history of bilateral hip pain extending back for more than 10 years. She had initially noted the onset of her symptoms unrelated to injury or unusual activity and had undergone previous orthopedic evaluation while living in the [facility] area. Initially, her treatment was focused upon her left knee where she did receive therapy intervention, but becoming progressively more symptomatic with pain. She later relocated to [place] and had received further disposition with her primary care physician, which included therapy intervention, at which time it was suggested that she might undergo orthopedic evaluation with some suspicion that her symptoms might be related to her hip area. She was later found to have significant osteoarthritis of both hips for which she had initially conformed to a weight reduction program and continuing to monitor her diabetes for which she was insulin dependent. She became progressively more incapacitated with pain and was subsequently admitted to the hospital in May of this year and at that time, underwent a right total hip arthroplasty completed in an uncomplicated manner. The patient was noted to have tolerated her operative procedure well and her postoperative course was stable thereafter. She was able to proceed with progressive mobilization, but throughout this interval of time, continued to experience ongoing pain about her left hip that did limit her overall progress. She continued to conform to conservative management in this regard, but described considerable incapacitation with regard to all weightbearing activities, primarily related to ongoing pain involving her left hip and in spite of significant improvement with regard to her preoperative symptoms involving her right hip. When seen in more recent followup evaluation, her x-ray studies revealed severe degenerative changes of her left hip with subtotal obliteration of the joint space and obvious deformation of the femoral head. Findings and treatment options were again reviewed with emphasis being made that the decision to proceed with additional surgery would be left entirely to the patient's discretion. She readily admitted that she was quite eager to proceed in this direction, knowing the ongoing pain and limitations that she was experiencing, and in compliance with her wishes, she was scheduled for admission at this time in order that a left total hip arthroplasty be accomplished. PAST MEDICAL HISTORY, HOSPITALIZATIONS AND SURGERIES: In addition to her right total hip arthroplasty have included tonsillectomy and dental extraction. The patient has been hospitalized for medical management of diabetes. Her current medical illness include diabetes and hypertension. She takes Lantus 40 units daily and Humulin N insulin 5-10 units twice daily. She conforms to modification of her diet as part of her diabetic management. She also takes Accupril 5 mg daily for hypertension. ALLERGIES: THE PATIENT DENIES ANY KNOWN DRUG ALLERGIES. REVIEW OF SYSTEMS: She wears glasses and contact lenses. No headache, seizure or syncope. No sinus congestion or epistaxis. Auditory acuity intact. No tinnitus. No bleeding gums or dysphagia. No cough, shortness of breath, upper respiratory infection, pneumonia or tuberculosis. No angina or heart disease. She is medically managed for hypertension. Appetite good. Bowel movements regular. No hepatitis, gallbladder disease, ulcers or hemorrhoids. No urinary tract infection, no kidney stones. No history of fractures. No psychiatric illness. Her remaining review of systems is unremarkable and noncontributory. FAMILY HISTORY: 20 years. is 57 years of age. He has a history of heart disease. No children. FAMILY HISTORY: Positive for diabetes and heart disease. SOCIAL HISTORY: The patient completed a BA degree. 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 She is hopeful to return to gainful employment in the foreseeable future pending progress following hip surgery. She admits to a 1/2 to 1 pack a day use of tobacco for more than 20 years. Denies ethanol consumption. PHYSICAL EXAMINATION: VITAL SIGNS: Height 5 feet 6-1/2 inches, weight 168 pounds. GENERAL: An alert, oriented and responsive 57-year-old white female sitting quietly with mild distress as related to left hip pain. HEAD, EARS, EYES, NOSE AND THROAT: Pupils are equally round and reactive to light. Extraocular movements full. Sclerae are clear. External nares clear. External auditory canals clear. Dental intact. Mucous membranes pink and moist. Pharynx clear. NECK: Supple. Active range of motion without appreciable pain. Carotid pulse palpable bilaterally. Trachea midline. Thyroid without enlargement. LUNGS: Clear to auscultation and percussion. No CVA tenderness. No discomfort throughout the dorsolumbar spine. HEART: Regular rate and rhythm. No murmur or gallop. ABDOMEN: Soft, nontender. Bowel sounds are present. PELVIC: Deferred. EXTREMITIES: Left hip, no significant pain is elicited with palpation generalized about the lateral aspect of the left hip. There is restricted mobility of the hip joint in all ranges assessed with obvious pain and apprehension at the extremes of motion. Straight leg raising is minimally positive at 60 degrees. Umang sign is positive. Distal sensory grossly intact. Pronounced antalgic gait. NEUROLOGIC: Cranial nerves 2-12 grossly intact. IMPRESSION: Severe osteoarthritis of the left hip. PLAN: Left total hip arthroplasty. Once again, the nature of the planned surgical procedure, the potential complications and risks associated, the expectations of surgery and the consent form were thoroughly reviewed with the patient prior to her admission to the hospital. Elvira has indicated her full understanding regarding all of the above and given consent to proceed with treatment as outlined. Medical evaluation and clearance for surgery completed by her primary care physician, Dr. Umang Lyon. MD NORA Davila/velasquez , 05:00 PM , 05:13 PM
[2017-10-26] MEDS ORDERED: Sodium Chlor 0.9% Inj 500 ML IV.SIG SCH (07:00)
[2017-10-26] MEDS ORDERED: ceFAZolin 2 GM Premix Inj 2 GM/100 ML BAG IV.SIG ONE (07:11)
[2017-10-26] MEDS ORDERED: Phenylephrine/NS 1000 MCG/10ML Syringe IV.PUSH ONE (07:15)
[2017-10-26] MEDS ORDERED: Bupivacaine/Dextrose 0.75% Inj 2 ML Ampul ONE (07:16)
[2017-10-26] MEDS ORDERED: Tranexamic Acid Inj 1,000 MG in Sodium Chlor 0.9% Inj 100 ML IV.SIG SCH ×2 (07:30→10:30)
[2017-10-26] MEDS: ceFAZolin 2 GM Premix Inj 2 GM/50 ML PIGGYBACK IV.SIG SCH (07:47)
[2017-10-26] MEDS ORDERED: Naloxone Inj 0.4 MG/ML Vial IV.PUSH PRN (09:46)
[2017-10-26] MEDS ORDERED: Bisacodyl 10 MG Supp RECTAL PRN (09:46)
[2017-10-26] MEDS ORDERED: Aluminum/Magnesium/Simethacone Susp 30 ML UDC PO PRN (09:46)
[2017-10-26] MEDS ORDERED: Post-op Orders (for Pharmacy) OTHER STA (09:46)
[2017-10-26] MEDS ORDERED: Morphine Inj 4 MG/ML Vial IV.PUSH PRN (09:46)
[2017-10-26] MEDS ORDERED: Acetaminophen 325 MG Tablet PO PRN (09:46)
[2017-10-26] MEDS ORDERED: Tranexamic Acid Inj 1,000 MG in Sodium Chlor 0.9% Inj 100 ML IV.SIG ONE (09:46)
[2017-10-26] MEDS ORDERED: Morphine Inj 30 MG/30 ML PCA.VIAL PCA ONE (10:05)
[2017-10-26] MEDS ORDERED: *morphine SULFATE 10 MG/ML PERIprocedure ONLY ONE (10:18)
--- NOTE | 2017-10-26 10:32 | MP ---
cc: Cristofer Harrington MD DATE OF OPERATION: 10/26/2017 PREOPERATIVE DIAGNOSIS: Severe osteoarthritis of the left hip. POSTOPERATIVE DIAGNOSIS: Severe osteoarthritis of the left hip. PROCEDURE PERFORMED: Left total hip arthroplasty. SURGEON: Cristofer Harrington MD ANESTHESIA: Spinal. INDICATIONS FOR PROCEDURE: This is a 57-year-old white female with a longstanding history of bilateral hip pain, extending back for at least 10 years as related to osteoarthritis. The patient has conformed to conservative management in the past, but became progressively more symptomatic with pain with the passage of time and began to limit all weightbearing activities. She has subsequently been admitted to the hospital in May of this year and at that time, underwent a right total hip arthroplasty, which was completed in an uncomplicated manner. The patient having tolerated her operative procedure well with an uneventful recovery thereafter. Throughout this interval of time she remained symptomatic with ongoing pain about her left hip for which she returned to the office more recently indicating ongoing problems regarding her daily activities. Her x-ray studies did reveal severe degenerative changes with subtotal obliteration of the joint space, deformation of the femoral head and hypertrophic bony reaction. Findings and treatment options were again reviewed. Noting her favorable outcome from previous hip surgery, the patient expressed her desire to proceed accordingly at this time and in compliance with her wishes, she was scheduled for admission in order that a left total hip arthroplasty to be accomplished. FORMAT: Following the induction of satisfactory spinal anesthesia as completed per the Department of Anesthesia, the patient was positioned on the operating table in a right lateral decubitus fashion. The left hip and lower extremity proper were isolated with a U-drape, thereafter being prepped with Betadine solution and draped into a sterile field in the routine manner. Prior to initiation of the actual procedure, the standard timeout protocol was completed. All parameters were appropriately addressed and confirmed by operating room personnel. A standard posterolateral approach to the hip was initiated through a sharp skin incision and developed through underlying subcutaneous tissue with hemostasis maintained by electrocautery. By deepening dissection, the fascia overlying the gluteus musculature was exposed and thereafter sharply incised to the limits of the incision. The underlying gluteus fibers being bluntly divided with the Bovie on cutting current. Progressive dissection facilitated exposure of the short external rotator structures. The piriformis tendon was utilized in the anatomical landmark and division of these structures was completed in a superior to inferior orientation and reflected medially, exposing the posterior capsule. The sciatic nerve was protected. An L-shaped capsulotomy was accomplished with which a posterior dislocation of the femoral head was completed. Examination revealed severe degenerative changes with significant erosion of articular cartilage and deformation of the femoral head. The femoral template was positioned for alignment orientation. The neck was scored and thereafter divided with power saw; the amputated segment being passed to the back table as surgical specimen. Attention was initially directed to the proximal femur. Cancellous bone was harvested. The tapered reamer was inserted for alignment orientation. Sequential rasping and broaching was accomplished from 7 mm - 9 mm with the calcar bijan being utilized at the 9 mm stage. The 9 mm stem was determined to be a favorable fit. Trial component being removed, attention was redirected to the acetabulum. The labrum and reactive soft tissue were sharply excised. Progressive reaming was accomplished from 46 mm - 51 mm. The 52 trial shell was positioned and determined to be satisfactory. With all trial components being removed, the wound was copiously irrigated with pulsating antibiotic solution, hemostasis maintained by electrocautery. Harvested cancellous bone was digitally impacted into the depths of the acetabulum and thereafter a 52 mm RingLoc acetabular shell was firmly seated in approximately 45 degrees inclination of the horizontal and slight anteversion. A single 25 mm 6.5 cancellous screw was inserted superiorly to augment fixation. The permanent high wall acetabular liner was affixed to the acetabular shell. Attention returned to the proximal femur. The size 9 trial femoral broach was repositioned and a trial reduction followed utilizing a 36 mm modular head with -6 mm neck length adaptor. The hip readily reduced and was carried through a passive range of motion, stability being demonstrated at 90 degrees flexion and 45 degrees internal rotation. An open dislocation was completed, the trial femoral components being removed; the canal was thoroughly irrigated and dried and thereafter a size 9 Echo Bi-Metric hip stem, standard femoral stem was firmly seated to which, a 36 mm ceramic head with -6 mm neck length adapter attached. Open reduction completed and repeat range of motion again noted stability as previously described. Final irrigation was accomplished. Hemostasis maintained. The posterior capsule was repaired with 0-Vicryl suture. Piriformis tendon and short external rotator structures were reapproximated in a similar manner. Hemovac drain tubes were inserted through superior stab wounds. The fascia of the gluteus musculature reapproximated with running 0-Vicryl sutures. The remaining portion of the wound closed in layers in the routine manner. Skin margins being reapproximated with a running subcuticular 3-0 Vicryl suture over which Steri-Strips were applied. Xeroform gauze and a bulky dry sterile dressing placed. The patient was repositioned in the supine orientation abduction splint attached, anesthesia discontinued. The patient thereafter transferred to a hospital bed and returned to the recovery room in satisfactory condition, having tolerated her operative procedure well. Estimated blood loss was approximately 300 mL as determined per Anesthesia. All implants were of the [employer] government relations director. MD NORA Davila/juan daniel , 09:40 AM , 09:52 AM
[2017-10-26] MEDS: Morphine Inj 30 MG/30 ML PCA.VIAL PCA PRN ×2 (10:58→17:02)
[2017-10-26] MEDS ORDERED: Dextrose 50% in Water 50 ML Vial IV.PUSH PRN (11:05)
--- NOTE | 2017-10-26 11:40 | XR ---
EXAM DATE: 10/26/2017 10:53 AM EDT AGE/SEX: 57 years / Female INDICATIONS: Post-op left hip. Patient complains of pain. CLINICAL DATA: This is the patient's initial encounter. Patient reports that signs and symptoms have been present for 1 day and indicates a pain score of 10/10. MEDICAL/SURGICAL HISTORY: None. . H/O right hip replacement. COMPARISON: [facility], HIP RIGHT AP ONLY WO AP PELVIS, 05/12/2017. . FINDINGS: Patient's had a left total hip arthroplasty in good position. There are no complications. Right hip a rthroplasty is also in good position. CONCLUSION: Bilateral hip arthroplasties no evidence of fracture Electronically signed by: Christo Machado MD 10/26/2017 10:55 AM EDT
--- NOTE | 2017-10-26 13:22 | P.CONIM ---
History of Present Illness Service: Hospitalist Consult date: 10/26/17 Requesting Physician: Cristofer Harrington Reason for Consult: Medical management Primary Care Provider: Umang Lyon Family Provider: Umang Lyon History of Present Illness: 57-year-old female with history of diabetes, hypertension, and osteoarthritis admitted for elective left total hip arthroplasty. Hospitalist consulted for medical management. She endorses pain at the surgical site but otherwise has no complaints. Had some post-op nausea but now resolved. Denies CP , SOB, abdominal pain, or vomiting. Plans to go home with [facility] on discharge. Had R TKR back in May and recovered well with [facility]. She lives at home with her . The patient smokes daily but is very vague about the amount. She drinks EtOH "a couple times a week." Her diabetes is managed with Lantus and Novolin. She states her last A1c was 5.6. Review of Systems All other systems reviewed negative except as stated in HPI PMFSH - History History Provided By: Patient - Medical History Medical History: Medical History (Last Updated 10/26/17 @ 13:26 by Afua Godfrey MD) Diabetes mellitus Hypertension Osteoarthritis - Surgical History Surgical History: Surgical History (Last Reviewed 10/26/17 @ 08:20 by John Brooks) History of right hip replacement - Family History Family History: Family History (Last Updated 10/26/17 @ 14:47 by Afua Godfrey MD) Mother Diabetes - Social History I have reviewed the patient's Social History: Yes - Tobacco History Second Hand Smoke Exposure: Yes Tobacco Use In Past 30 Days: Yes Smoking Status: Current every day smoker Tobacco Type: Cigarettes - Alcohol History How Often Do You Have a Drink Containing Alcohol: 2 to 3 times a week - Substance Use History Substance History: No History of Abuse - Travel History Recent Travel in the [place] Within the Last 8 Weeks: No Recent Travel Out of the Country Within the Last 8 Weeks: No Medications and Allergies Active Medications: Active Medications Acetaminophen (Tylenol) 650 mg PO Q6H PRN PRN Reason: FEVER > 102 F Hydrocodone Bitart/Acetaminophen ([place] 5/325) 1 tab PO Q4H PRN PRN Reason: PAIN LESS THAN 5 ON SCALE Hydrocodone Bitart/Acetaminophen ([place] 5/325) 2 tab PO Q6H PRN PRN Reason: PAIN SCALE 5 TO 10 Last Admin: 10/26/17 12:59 Dose: 2 tab Al Hydrox/Mg Hydrox/Simethicone (Mag-Al Plus Susp Liq) 30 ml PO Q6H PRN PRN Reason: INDIGESTION Al Hydroxide/Mg Hydroxide (Milk Of Magnesia Liq) 30 ml PO BID PRN PRN Reason: Mild Constipation Aspirin (Aspirin) 325 mg PO BID [facility] Bisacodyl (Dulcolax Supp) 10 mg RECTAL DAILY PRN PRN Reason: SEVERE CONSITIPATION Chlorhexidine Gluconate (Hibiclens 4% Topical) 1 applicatio TOPICAL ONCE [facility] Stop: 10/30/17 06:14 Dextrose (D50w Vial) 50 ml IV.PUSH UNSCH PRN PRN Reason: PER HYPOGLYCEMIA PROTOCOL Glucagon (Glucagon Inj) 1 mg OTHER UNSCH PRN PRN Reason: for Hypoglycemia Protocol Lactated Ringer's (Lr 1000 Ml Inj) 1,000 mls @ 30 mls/hr IV.SIG .Q24H [facility] Stop: 10/27/17 06:14 Last Infusion: 10/26/17 09:45 Dose: Infused Sodium Chloride (Ns Inj) 500 mls @ 30 mls/hr IV.SIG .Q10H [facility] Cefazolin Sodium/Dextrose (Ancef 2 Gm Premix Inj) 2 gm in 50 mls @ 100 mls/hr IV.SIG MARKETING AND OUTREACH COORDINATOR [facility] Stop: 10/30/17 06:59 Last Infusion: 10/26/17 08:30 Dose: Infused Tranexamic Acid 1,000 mg/ (Sodium Chloride) 110 mls @ 200 mls/hr IV.SIG ONCE [facility] Stop: 10/26/17 13:30 Last Infusion: 10/26/17 08:20 Dose: Infused Tranexamic Acid 1,000 mg/ (Sodium Chloride) 110 mls @ 200 mls/hr IV.SIG ONCE [facility] Stop: 10/27/17 11:30 Last Admin: 10/26/17 10:30 Dose: 200 mls/hr Cefazolin Sodium 1,000 mg/ (Sodium Chloride) 100 mls @ 200 mls/hr IV.SIG Q6H [facility] Stop: 10/27/17 02:29 Lactated Ringer's (Lr 1000 Ml Inj) 1,000 mls @ 80 mls/hr IV.CONT .[id number] [facility] Last Admin: 10/26/17 10:57 Dose: 80 mls/hr Morphine Sulfate (Morphine Inj) 30 mg in 30 mls @ 0 mls/hr CLINICAL ALLERGIST UNSCH PRN PRN Reason: per CLINICAL ALLERGIST parameters Stop: 10/27/17 09:45 Last Admin: 10/26/17 10:58 Dose: 0 mls/hr Insulin Aspart (Novolog Insulin Correctional Sugar Inj) 0 unit SQ ACHS [facility]; Protocol Insulin Detemir (Levemir Inj) 40 unit SQ DAILY [facility] Lactulose (Lactulose Liq) 30 ml PO DAILY PRN PRN Reason: SEVERE CONSITIPATION Lisinopril (Prinivil) 5 mg PO DAILY [facility] Miscellaneous Information ([facility] Information) 0 each OTHER UNSCH PRN PRN Reason: SEE DOSE INSTRUCTIONS Miscellaneous Information ([facility] Information) 1 each OTHER UNSCH PRN PRN Reason: SEE LABEL COMMENTS Stop: 10/27/17 09:44 Morphine Sulfate (Morphine Inj) 4 mg IV.PUSH Q3H PRN PRN Reason: BREAKTHROUGH PAIN Naloxone HCl (Narcan Inj) 0.4 mg IV.PUSH UNSCH PRN PRN Reason: Resp rate < 10 Ondansetron HCl (Zofran Inj) 4 mg IV.PUSH Q6H PRN PRN Reason: NAUSEA OR VOMITING Last Admin: 10/26/17 12:59 Dose: 4 mg Povidone Iodine (Betadine 7.5% Scrub) 1 applicatio TOPICAL ONCE [facility] Stop: 10/30/17 06:59 Last Admin: 10/26/17 06:30 Dose: 1 applicatio Senna/Docusate Sodium (Emani-Colace) 1 tab PO BID [facility] Sennosides (Senokot) 17.2 mg PO BID PRN PRN Reason: Moderate Constipation Sodium Chloride (Ns Flush) 2 ml IV.FLUSH BID [facility] Sodium Chloride (Ns Flush) 2 ml IV.FLUSH UNSCH PRN PRN Reason: FLUSH AFTER USING IV ACCESS Zolpidem Tartrate (Ambien) 5 mg PO HS PRN PRN Reason: INSOMNIA Allergies Allergy/AdvReac Type Severity Reaction Status Date / Time No Known Allergies Allergy Verified 10/26/17 06:18 Home Medications Medication Instructions Recorded Confirmed Type insulin NPH isoph U-100 human 5 - 10 unit SUB-Q BID 10/25/17 10/26/17 History [Humulin N NPH U-100 Insulin] insulin glargine [Lantus U-100 40 unit SUB-Q DAILY 10/25/17 10/26/17 History Insulin] quinapril [Accupril] 5 mg PO DAILY 10/25/17 10/26/17 History Exam Vital signs: Vital Signs 10/26/17 06:46 10/26/17 09:39 10/26/17 09:45 Temperature 98.1 F 96.7 F L Pulse Rate 77 73 69 Respiratory Rate 22 12 17 Blood Pressure 155/64 H 106/54 L 124/60 Pulse Oximetry 99 100 99 10/26/17 10:00 10/26/17 10:15 10/26/17 10:20 Temperature 96.9 F L Pulse Rate 67 69 Respiratory Rate 19 18 14 Blood Pressure 143/64 H 136/65 Pulse Oximetry 98 98 10/26/17 10:30 10/26/17 11:28 10/26/17 12:00 Temperature 98.4 F 97.5 F L Pulse Rate 66 66 Respiratory Rate 13 20 17 Blood Pressure 127/62 154/71 H Pulse Oximetry 98 99 Intake & Output 10/25/17 10/26/17 10/26/17 18:59 06:59 18:59 Intake Total 1160 / 1160 Output Total 330 / 330 Balance 830 / 830 Weight 76.7 kg Intake: IV 1160 / 1160 LR 1000 mL Inj 1,000 ML @ 30 1000 / 1000 mls/hr IV.SIG .Q24H [facility] Rx#: [id number] Cyklokapron Inj 1,000 MG In NS 110 / 110 Inj 100 ML @ 200 mls/hr IV.SIG ONCE [facility] Rx#:[id number] Ancef 2 GM Premix Inj 2 gm In 50 / 50 50 ml @ 100 mls/hr IV.SIG MARKETING AND OUTREACH COORDINATOR [facility] Rx#:[id number] Output: Estimated Blood Loss 300 / 300 Wound Drainage 30 / 30 # 2 Left Hip 30 / 30 Other: Weight On Admission 76.7 kg Narrative: GENERAL: WN, WD elderly female resting in bed in NAD. SKIN: Warm and dry. HEENT: AT/NC. Pupils equal and round. MMM. HEART: RRR no m/r/g. LUNGS: CTAB without wheezes or crackles. ABDOMEN: +BS, soft, NT, ND. EXTREMITIES: Dressing over L hip. NEURO: Awake and alert. Results - Labs Labs: Laboratory Results - last 24 hr 10/26/17 10/26/17 10/26/17 06:25 06:30 09:51 POC Glucose 124 H 185 H Blood Type AB Positive Blood Type Recheck Required Antibody Screen Negative - Imaging Impressions Hip X-Ray 10/26/17 09:42 CONCLUSION: Bilateral hip arthroplasties no evidence of fracture Assessment and Plan - Assessment (1) Status post left hip replacement Code(s): Z96.642 - Presence of left artificial hip joint Status: Acute - Plan 57 year old female with DM, HTN, and OA admitted for elective T LHR. Hospitalist consulted for medical management. 1. S/P L THR Postop management per orthopedic surgery 2. Diabetes Well controlled per patient's recount of last A1c 5.6 Resume home Lantus 40 units daily Hold home Novolin and place on SSI with Accu-Checks per protocol 3. Hypertension Resume home Accupril (patient reports she is more on this for renal protection give DM) Monitor BPs DVT prophylaxis: per ortho Discussed Condition With: Patient Discharge Planning: Per ortho
[2017-10-26] MEDS: Insulin NovoLOG Aspart Correctional Sugar Inj SQ SCH ×3 (14:31→21:07)
[2017-10-26] MEDS: Senna/Docusate Sodium 8.6/50 MG Tablet PO SCH (20:12)
[2017-10-26] MEDS: Aspirin 325 MG Tablet PO SCH (20:13)
[2017-10-26] MEDS ORDERED: Zolpidem Tartrate 5 MG Tablet PO PRN (21:00)
[2017-10-27] MEDS: ceFAZolin 2 GM Premix Inj 2 GM/50 ML PIGGYBACK IV.SIG SCH (05:18)
[2017-10-27 06:48] LABS: Hematocrit 29.3 % (35.0-46.0); Hemoglobin 10.1 gm/dL (11.6-15.3)
[2017-10-27] MEDS ORDERED: Insulin Detemir Inj 1,000 UNIT/10 ML Vial SQ SCH (09:00)
[2017-10-27] MEDS: Insulin NovoLOG Aspart Correctional Sugar Inj SQ SCH ×4 (09:02→21:04)
[2017-10-27] MEDS: Lisinopril 5 MG Tablet PO SCH (09:06)
[2017-10-27] MEDS: Aspirin 325 MG Tablet PO SCH ×2 (09:07→21:03)
[2017-10-27] MEDS: Senna/Docusate Sodium 8.6/50 MG Tablet PO SCH ×2 (09:07→21:03)
--- NOTE | 2017-10-27 10:50 | P.PNIM ---
Subjective Interval history: FU hip replacement. Patient sitting in chair, anxious to get discharged and waiting on breakfast. Denies any chest pain, sob. States hip pain is controlled. Physical Exam Vital signs: Vital Signs 10/26/17 11:28 10/26/17 12:00 10/26/17 16:00 Temperature 97.5 F L 98.7 F Pulse Rate 66 80 Respiratory Rate 20 17 18 Blood Pressure 154/71 H 144/63 H Pulse Oximetry 99 97 10/26/17 20:00 10/27/17 00:00 10/27/17 04:00 Temperature 98.2 F 98.2 F 98.6 F Pulse Rate 81 82 86 Respiratory Rate 16 18 16 Blood Pressure 130/60 130/78 150/68 H Pulse Oximetry 96 96 97 10/27/17 08:00 Temperature 98.5 F Pulse Rate 87 Respiratory Rate 18 Blood Pressure 122/61 Pulse Oximetry 95 Intake & Output 10/26/17 10/27/17 10/27/17 18:59 06:59 18:59 Intake Total 1910 / 1910 1350 / 1350 Output Total 660 / 660 600 / 600 Balance 1250 / 1250 750 / 750 Weight 74.7 kg 76.5 kg Intake: IV 1160 / 1160 1350 / 1350 LR 1000 mL Inj 1,000 ML @ 80 1000 / 1000 mls/hr IV.CONT .[id number] [facility] Rx# :[id number] LR 1000 mL Inj 1,000 ML @ 30 1000 / 1000 mls/hr IV.SIG .Q24H [facility] Rx#: [id number] Cyklokapron Inj 1,000 MG In NS 110 / 110 Inj 100 ML @ 200 mls/hr IV.SIG ONCE [facility] Rx#:[id number] Ancef 2 GM Premix Inj 2 gm In 50 / 50 50 / 50 50 ml @ 100 mls/hr IV.SIG REFRACTORY TECHNICIAN [facility] Rx#:[id number] Ancef Inj 1,000 MG In NS Inj 0 / 0 200 / 200 100 ML @ 200 mls/hr IV.SIG Q6H [facility] Rx#:[id number] Oral 750 / 750 Output: Urine 600 / 600 Estimated Blood Loss 600 / 600 Wound Drainage 60 / 60 # 2 Left Hip 60 / 60 Other: # Voids 2 2 Date of Last Bowel Movement 10/25/17 Narrative: GENERAL: This is a well-nourished, well-developed patient, in no apparent distress. CARDIOVASCULAR: Regular rate and rhythm without murmurs, gallops, or rubs. RESPIRATORY: Clear to auscultation. Breath sounds equal bilaterally. No wheezes , rales, or rhonchi. GASTROINTESTINAL: Abdomen soft, non-tender, nondistended. Normal active bowel sounds MUSCULOSKELETAL: Extremities without clubbing, cyanosis, or edema. NEURO: Alert & Oriented x4 to person, place, time, situation. Moves all ext x4 Results - Labs CBC & Chem 7: 10/27/17 06:15 Laboratory Results - last 24 hr 10/26/17 10/26/17 10/27/17 16:39 20:10 06:15 Hgb 10.1 L Hct 29.3 L POC Glucose 374 H 244 H 10/27/17 09:06 Hgb Hct POC Glucose 103 - Imaging Impressions Hip X-Ray 10/26/17 09:42 CONCLUSION: Bilateral hip arthroplasties no evidence of fracture Assessment and Plan - Assessment (1) Status post left hip replacement Code(s): Z96.642 - Presence of left artificial hip joint Status: Acute - Plan 57 year old female with DM, HTN, and OA admitted for elective T LHR. Hospitalist consulted for medical management. S/P L THR POD Postop management per orthopedic surgery Diabetes, controlled Well controlled per patient's recount of last A1c 5.6 Resume home Lantus 40 units daily Hold home Novolin and place on SSI with Accu-Checks per protocol Hypertension, controlled Resume home Accupril (patient reports she is more on this for renal protection give DM) Monitor BPs DVT prophylaxis: per ortho Patient has remained stable, [facility] will sign off. Reconsult if needed. 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
--- NOTE | 2017-10-27 12:06 | P.DCO ---
- Physical Therapy Physical Therapy: Gait training Hip: Total hip, Protocol: Left, Posterior hip precautions, Abduction pillow while in bed, Progress to weight bearing Left Lower Extremity Weight Bearing: Weight bearing as tolerated Left Lower Extremity Range of Motion: Active ROM - Nursing Nursing: Dressing changes Dressing changes: Daily dressing change - Certification Need for Home Health services: I have seen patient Elvira Machuca on 10/27/17. My clinical findings support the need for the requested home health care services because: Need for Home Health Services: Limited ability to care for self, High risk of falls Homebound Certification: I certify that my clinical findings support that this patient is homebound because: Homebound Certification: Post-op weakness, Unsteady gait/balance, Unsafe to leave home unassisted
--- NOTE | 2017-10-27 14:50 | P.DCO ---
- Physical Therapy Order: Evaluate and treat, Improve ambulation, Strength and gait training - Home Health Nursing Order: Medical education, Signs/symptoms of disease process, Medication education-adverse effect, Wound care and dressing changes - Case Management Consult No - Certification I have seen patient Elvira Machuca on 10/27/17. My clinical findings support the need for the requested home health care services because: Limited mobility due to disease progression, Deconditioned with increased weakness I certify that my clinical findings support that this patient is homebound because: Post-op weakness, Unsteady gait/balance, Unsafe to leave home unassisted, Unable to use public transportation
[2017-10-27] MEDS: Insulin Detemir Inj 1,000 UNIT/10 ML Vial SQ SCH ×2 (19:14→20:35)
[2017-10-28 00:16] VITALS: O2SAT 97
[2017-10-28 06:47] VITALS: RESP 18
--- NOTE | 2017-10-28 07:24 | MD ---
cc: Cristofer Harrington MD, Patrick DATE OF DISCHARGE: 10/28/2017 ADMITTING DIAGNOSIS: Severe osteoarthritis of the left hip. DISCHARGE DIAGNOSIS: Severe osteoarthritis of the left hip. HISTORY: A 57-year-old white female with a longstanding history of bilateral hip pain extending back for at least 10 years as related to osteoarthritis. She had conformed to conservative management years past, but with the passage of time became progressively more symptomatic with pain that began to interfere with all weightbearing activities. She was subsequently admitted to the hospital in May of this year; and at that time, underwent a right total hip arthroplasty, which was completed in an uncomplicated manner. The patient was noted to have tolerated her operative procedure well. Her postoperative course stable thereafter. She was able to proceed through progressive mobilization; but throughout this interval of time, she remained symptomatic with ongoing pain involving her left hip that did limit her daily routine and associated weightbearing activities. She had returned to the office in the recent past complaining of ongoing pain unresponsive to ongoing pain management. Her x-ray studies revealed severe degenerative changes of the hip joint with subtotal obliteration of the joint space and deformation of the femoral head. Findings and treatment options were reviewed. The pros and cons of continuing with conservative management versus operative intervention that would involve total hip replacement were outlined. The patient readily admitted that she was quite eager to proceed in this direction ;and in compliance with her wishes, she was scheduled for admission in order that the above be accomplished. PHYSICAL EXAMINATION: At the time of admission revealed no significant pain elicited with palpation generalized about the lateral aspect of the left hip. There was restricted mobility of the hip joint in all ranges assessed with pain and apprehension at the extremes of motion. Straight-leg raising was minimally positive at 60 degrees. Umang sign was positive. Distal sensory grossly intact. Pronounced antalgic gait. HOSPITAL COURSE: Prior to admission to the hospital, the patient had undergone medical evaluation and clearance for surgery as completed by her primary care physician, Dr. Umang Lyon. She was taken to the operating room on 10/26/2017, and on that date underwent a left total hip arthroplasty completed in an uncomplicated manner. The patient tolerated her operative procedure well. Her postoperative course was stable thereafter. Hemoglobin and hematocrit assessment postoperatively was 10.1 and 29.3 respectively. The patient was progressively mobilized under the guidance of physical therapy being permitted weightbearing to tolerance about the left lower extremity. Followup examination of her surgical wound noted to be intact, healing favorably with no evidence of infection. Medical followup per the hospitalist service. DVT prophylaxis initiated. [employer] Technician consulted to assist with discharge planning. The patient indicated her desire to be discharged home and continue her rehabilitation on an outpatient basis. Plans were finalized in this regard; and pending medical clearance, she was scheduled for discharge on the second postoperative day, at which time she was noted to be making favorable progress with regard to her initial rehabilitation program. She was scheduled to be seen in office followup in approximately 4 weeks. CONDITION AT THE TIME OF CONDITION ON DISCHARGE: Stable. PROGNOSIS: Favorable. DISCHARGE MEDICATIONS: Include: Hydrocodone 5/325, #30; aspirin 325 mg 1 tab twice daily for 4 weeks as continued DVT prophylaxis. MD NORA Davila/rs , 06:14 AM , 06:23 AM
[2017-10-28 08:17] VITALS: BP 131/64; PULSE 91; TEMP 98.9
[2017-10-28] MEDS: Insulin NovoLOG Aspart Correctional Sugar Inj SQ SCH (08:56)
[2017-10-28] MEDS: Lisinopril 5 MG Tablet PO SCH (08:58)
[2017-10-28] MEDS: Aspirin 325 MG Tablet PO SCH (08:58)
[2017-10-28] MEDS: Senna/Docusate Sodium 8.6/50 MG Tablet PO SCH (08:59)
== END 2017-10-28 10:49 | disposition home health service (06) ==
LOC: HSDI 05:40 → N06 11:10
PROVIDERS: ADMIT Orthopaedic Surgery; ATTEND Orthopaedic Surgery